=== PATIENT | male | born 1955 | race Caucasian/White ===

== ENCOUNTER 2019-04-15 13:36 | Inpatient (IN) | payer MEDICAID ==
[2019-04-15] MEDS ORDERED: ACETAMINOPHEN 325 MG TABLET PO ONE (14:36)
[2019-04-15 14:43] LABS: VENOUS BLOOD BASE EXCESS 3.8 mmol/L; VENOUS BLOOD HCO3 30.5 mmol/L (20-32); VENOUS BLOOD PCO2 53.4 mmHg (35-63); VENOUS BLOOD PH 7.38 (7.30-7.42)
[2019-04-15 14:46] LABS: ABSOLUTE LYMPHOCYTES (AUTO) 0.7 10^3/uL (0.5-4.7); ABSOLUTE MONOCYTES (AUTO) 1.3 10^3/uL (0.1-1.4); ABSOLUTE NEUT (AUTO) 7.6 10^3/uL (1.7-8.2); BASOPHILS % (AUTO) 0.5 % (0-2); HEMATOCRIT 47.1 % (37.9-51.0); HEMOGLOBIN 16.3 g/dL (13.5-17.0); MEAN CORPUSCULAR HEMOGLOBIN 33.2 pg (27.0-33.4); MEAN CORPUSCULAR HGB CONC 34.6 g/dL (32.0-36.0); MEAN CORPUSCULAR VOLUME 96 fl (80-97); PLATELET COUNT 152 10^3/uL (150-450); RED BLOOD COUNT 4.91 10^6/uL (4.35-5.55); RED CELL DISTRIBUTION WIDTH 13.6 % (11.5-14.0); SEGMENTED NEUTROPHILS % (AUTO) 78.5 % (42-78); TOTAL CELLS COUNTED % (AUTO) 100 %; WHITE BLOOD COUNT 9.6 10^3/uL (4.0-10.5)
[2019-04-15 14:49] LABS: PROTHROMBIN TIME 13.2 SEC (11.4-15.4)
[2019-04-15 15:02] LABS: ALBUMIN 3.8 g/dL (3.5-5.0); ALKALINE PHOSPHATASE 83 U/L (38-126); ANION GAP 9 (5-19); ASPARTATE AMINO TRANSFERASE 21 U/L (17-59); BILIRUBIN,DIRECT 0.3 mg/dL (0.0-0.4); BILIRUBIN,TOTAL 0.4 mg/dL (0.2-1.3); BLOOD UREA NITROGEN 11 mg/dL (7-20); CALCIUM 8.5 mg/dL (8.4-10.2); CARBON DIOXIDE 31 mmol/L (22-30); CHLORIDE 92 mmol/L (98-107); GLUCOSE 103 mg/dL (75-110); POTASSIUM 4.2 mmol/L (3.6-5.0); TOTAL PROTEIN 6.9 g/dL (6.3-8.2)
--- NOTE | 2019-04-15 15:04 | RADIOLOGY REPORT (SQ) ---
EXAM DESCRIPTION: CHEST SINGLE VIEW COMPLETED DATE/TIME: 04/15/2019 2:49 pm REASON FOR STUDY: sob, sepsis alert COMPARISON: None. EXAM PARAMETERS: NUMBER OF VIEWS: One view. TECHNIQUE: Single frontal radiographic view of the chest acquired. RADIATION DOSE: NA LIMITATIONS: None. FINDINGS: LUNGS AND PLEURA: No opacities, masses or pneumothorax. No pleural effusion. MEDIASTINUM AND HILAR STRUCTURES: No masses. Contour normal. HEART AND VASCULAR STRUCTURES: Heart normal in size. Normal vasculature. BONES: No acute findings. HARDWARE: None in the chest. OTHER: No other significant finding. IMPRESSION: NO ACUTE RADIOGRAPHIC FINDING IN THE CHEST. TECHNICAL DOCUMENTATION: JOB ID: [id number] 2010 [employer]- All Rights Reserved Reading location - IP/workstation name: [email or web address]
[2019-04-15] MEDS ORDERED: METHYLPREDNISOLONE INJ 125 MG/2 ML SDV IV ONE (17:04)
[2019-04-15] MEDS ORDERED: IPRATROPIUM/ALBUTEROL 0.5-2.5 MG/3 ML AMPUL NEB ONE (17:04)
--- NOTE | 2019-04-15 17:08 | ER Document Report ---
ED Respiratory Problem - General Chief Complaint: Breathing Difficulty Stated Complaint: COUGH,CONGESTION Time Seen by Provider: 04/15/19 16:56 Notes: Patient is a 63-year-old male who presents to the emergency department with a chief complaint of shortness of breath. Patient was brought in by EMS. Patient states that he has had a cough for quite a while and thought that he could possibly have pneumonia. He admits to having on and off chills. Patient is an everyday smoker. Patient smokes a pack of cigarettes a day. TRAVEL OUTSIDE OF THE [place] IN LAST 30 DAYS: No - Related Data Allergies/Adverse Reactions: No Known Allergies Allergy (Unverified 11/14/14 14:47) Past Medical History - General Information source: Patient - Social History Smoking Status: Current Every Day Smoker Family History: Reviewed & Not Pertinent Patient has suicidal ideation: No Patient has homicidal ideation: No Review of Systems - Review of Systems Notes: REVIEW OF SYSTEMS: CONSTITUTIONAL : Denies recent illness. Denies recent unintentional weight loss. Denies fever, chills, or sweats. EENT: Denies eye, ear, throat, or mouth pain, discharge, or symptoms. Denies nasal or sinus congestion. CARDIOVASCULAR: Denies chest pain. RESPIRATORY: See HPI. GASTROINTESTINAL: Denies nausea, vomiting, and diarrhea. Denies abdominal pain. Denies constipation. GENITOURINARY: Denies difficulty urinating, burning, blood in urine, urgency or frequency. MUSCULOSKELETAL: Denies neck and back pain. Denies joint pain or swelling. SKIN: Denies rash, itchiness, or lesions HEMATOLOGIC : Denies easy bruising or bleeding. LYMPHATIC: Denies swollen, painful, enlarged glands. NEUROLOGICAL: Denies no numbness or tingling denies weakness. Denies headache. Denies altered mental status. Denies alteration in speech. PSYCHIATRIC: Denies stress, anxiety, alteration in sleep patterns, or depression. All other systems reviewed and negative. Physical Exam - Vital signs Vitals: Resp Pulse Ox 24 H 97 04/15/19 14:28 04/15/19 14:28 - Notes Notes: PHYSICAL EXAMINATION: GENERAL: Appears well, healthy, well-nourished, no acute distress. HEAD: Normocephalic, atraumatic. EYES: PERRL, conjunctiva normal, all extraocular movements intact, sclera nonicteric ENT: Dry mucous membranes. NECK: Supple, no noticeable swelling, redness, rash. Normal range of motion. LUNGS: Equal breath sounds bilaterally and clear to auscultation. No wheezes rales or rhonchi. CARDIOVASCULAR: S1-S2, regular rate, regular rhythm. Radial pulses 2+, normal. ABDOMEN: Normoactive bowel sounds. Soft, nontender, no guarding, no rebound tenderness, and no masses palpated. EXTREMITIES: Normal strength and range of motion, no pitting or edema. No cyanosis. NEUROLOGICAL: Moves all extremities upon command. Strength 5/5 in all extremities. PSYCH: Normal mood, normal affect. SKIN: Warm, dry. No rash, lesions, ulcerations noted. Normal skin turgor. Course - Re-evaluation Re-evalutation: 04/15/19 18:45 After receiving 3 duo nebs, 2 g of magnesium and 125 g of Solu-Medrol, the patient still is wheezing. We will give him continuous albuterol nebulizer treatments for the next hour. Will reassess the patient. 04/15/19 20:00 Chest x-ray is normal. Labs are unremarkable. Patient is still wheezing throughout all lung barrett. I attempted to stand the patient up and he ended up deciding to 88-89% on room air. I then subsequently called Dr. Jeff. Patient will be admitted to the medical floor. - Vital Signs Vital signs: Temp Pulse Resp BP Pulse Ox 99.8 F 23 H 107/70 94 04/15/19 17:32 04/15/19 19:01 04/15/19 19:01 04/15/19 19:01 - Laboratory Result Diagrams: 04/15/19 14:30 04/15/19 14:30 Laboratory results interpreted by me: 04/15/19 04/15/19 04/15/19 14:30 14:30 14:30 Lymph % (Auto) 7.[address] [place] % (Auto) 14.0 H Seg Neutrophils % 78.5 H Sodium 132.4 L Chloride 92 L Carbon Dioxide 31 H NT-Pro-B Natriuret Pep 142 H Urine Protein Urine Ketones Urine Urobilinogen 04/15/19 18:50 Lymph % (Auto) [place] % (Auto) Seg Neutrophils % Sodium Chloride Carbon Dioxide NT-Pro-B Natriuret Pep Urine Protein 30 H Urine Ketones TRACE H Urine Urobilinogen 4.0 H Discharge - Discharge Clinical Impression: Shortness of breath, COPD exacerbation Condition: Stable Disposition: ADMITTED INPATIENT Admitting Provider: Tomer (Hospitalist) Unit Admitted: Medical Floor
[2019-04-15] MEDS: MAGNESIUM SULFATE/D5W 1 GM/100 ML RTUPB IV SCH ×2 (17:37→17:53)
[2019-04-15 18:15] LABS: A TYPE INFLUENZA AG NEGATIVE (NEGATIVE); B INFLUENZA AG NEGATIVE (NEGATIVE)
[2019-04-15] MEDS ORDERED: ALBUTEROL SULFATE 0.083% NEB 2.5 MG/3 ML AMPUL NEB ONE (18:43)
[2019-04-15 19:21] LABS: APPEARANCE,URINE CLEAR; BILIRUBIN,URINE NEGATIVE (NEGATIVE); COLOR,URINE YELLOW; GLUCOSE, URINE NEGATIVE (NEGATIVE); KETONES,URINE TRACE mg/dL (NEGATIVE); PROTEIN,URINE 30 mg/dL (NEGATIVE); URINE SPECIFIC GRAVITY 1.011
[2019-04-15] MEDS ORDERED: MAG HYDROX/AL HYDROX/SIMETH SUSP 30 ML UDCUP PO PRN (20:11)
[2019-04-15] MEDS ORDERED: LEVALBUTEROL HCL NEB 0.63 MG/3 ML AMPUL NEB PRN (20:11)
[2019-04-15] MEDS ORDERED: GUAIFENESIN SYRP 200 MG/10 ML UDC PO PRN (20:11)
[2019-04-15] MEDS ORDERED: ACETAMINOPHEN 325 MG TABLET PO PRN (20:11)
[2019-04-15] MEDS ORDERED: NICOTINE 21 MG/24 HR PATCH.TD24 TD PRN (20:11)
[2019-04-15] MEDS ORDERED: PROMETHAZINE HCL INJ 25 MG/1 ML VIAL IV PRN (20:11)
[2019-04-15] MEDS ORDERED: MAGNESIUM HYDROXIDE SUSP 30 ML UDCUP PO PRN (20:11)
[2019-04-15] MEDS: FAMOTIDINE 20 MG TABLET PO SCH (22:38)
[2019-04-15] MEDS: HEPARIN SOD (PORCINE) 5,000 UNIT/ML 1 ML VIAL SUBCUT SCH (22:39)
[2019-04-15] MEDS: MELATONIN 5 MG TABLET PO PRN (22:39)
--- NOTE | 2019-04-15 23:13 | EKG REPORT ---
SEVERITY:- ABNORMAL ECG - SINUS TACHYCARDIA MULTIPLE ATRIAL PREMATURE COMPLEXES DION, CONSIDER BIATRIAL ABNORMALITIES : Confirmed by: Ryan Grijalva 15-Apr-2019 23:13:11
[2019-04-16] MEDS: METHYLPREDNISOLONE INJ 40 MG/1 ML SDV IV SCH ×3 (00:10→11:25)
--- NOTE | 2019-04-16 00:10 | PDOC H&P ---
History of Present Illness Admission Date/PCP: 04/15/2019 20:02 No local PCP Patient complains of: Dyspnea History of Present Illness: MAUDE FIGUEROA is a 63 year old male who presented to the emergency room with acute dyspnea. He admits that he developed dyspnea this morning which he has worsened throughout the day, eventually becoming severe, causing him to call EMS to bring him to the hospital. His dyspnea is worsened by exertion and is accompanied by an increased chronic nonproductive cough. His dyspnea has been associated with intermittent episodes of subjective fever and chills with diaphoresis. He denies other associated or accompanying signs and symptoms. He admits prior similar episodes with respiratory infections in the past. He denies identification of any additional aggravating or ameliorating factors for his dyspnea. In the emergency room he was found to have an unremarkable evaluation with the exception of an initial elevated lactic acid which resolved with IV fluids and wheezing with acute hypoxic respiratory failure requiring supplemental oxygen. Patient was subsequently admitted to the hospital for further evaluation and treatment. Past Medical History Cardiac Medical History: Denies: Atrial Fibrillation, Congestive Heart Failure, Coronary Artery Disease, DVT, Myocardial Infarction, Hyperlipidema, Hypertension, Pulmonary Embolism Pulmonary Medical History: Reports: Bronchitis, Pneumonia Denies: Asthma, Chronic Obstructive Pulmonary Disease (COPD), Respiratory Failure EENT Medical History: Denies: Cataracts, Ears - Hearing aids Neurological Medical History: Denies: Hemorrhagic CVA, Ischemic CVA, Seizures Endocrine Medical History: Denies: Diabetes Mellitus Type 1, Diabetes Mellitus Type 2, Hyperthyroidism, Hypothyroidism Renal/ Medical History: Denies: Chronic Kidney Disease, Nephrolithiasis Malignancy Medical History: Reports: None GI Medical History: Denies: Cirrhosis, Crohn's Disease, Gastroesophageal Reflux Disease, Hepatitis, Peptic Ulcer Disease, Ulcerative Colitis Musculoskeltal Medical History: Denies: Arthritis, Gout Skin Medical History: Denies: Eczema, Psoriasis Psychiatric Medical History: Reports: Tobacco Dependency Denies: Alcohol Dependency, Substance Abuse Traumatic Medical History: Reports: None Hematology: Denies: Anemia, Bleeding Tendencies Infectious Medical History: Reports: None Past Surgical History Past Surgical History: Reports: Other - Incision and drainage of abscess Social History Information Source: Patient Lives with: Alone Smoking Status: Current Every Day Smoker Electronic Cigarette use?: No Frequency of Alcohol Use: Occasional Hx Recreational Drug Use: Yes - Occasional Drugs: Marijuana Hx Prescription Drug Abuse: No - Advance Directive Resuscitation Status: Full Code Surrogate healthcare decision maker:: Navneet Parekh Family History Family History: Malignancy. denies: CAD, DM, Hypertension Parental Family History Reviewed: Yes Children Family History Reviewed: No Sibling(s) Family History Reviewed.: Yes Medication/Allergy Home Medications: Hydrocodone/Acetaminophen [[place] 5-325 mg Tablet] 1 tab PO Q4HP PRN #14 tablet 11/14/14 Sulfamethoxazole/Trimethoprim [Sulfamethoxazole-Tmp Ds Tablet] 2 each PO BID #30 tablet 11/14/14 Allergies/Adverse Reactions: No Known Allergies Allergy (Unverified 11/14/14 14:47) Review of Systems Constitutional: PRESENT: as per HPI, chills, fever(s) Eyes: ABSENT: visual disturbances, other - Eye pain Ears: ABSENT: hearing changes, other - Ear pain Nose, Mouth, and Throat: ABSENT: headache(s), mouth pain, sore throat Cardiovascular: PRESENT: as per HPI, dyspnea on exertion. ABSENT: chest pain, edema, orthropnea, palpitations Respiratory: PRESENT: as per HPI, cough, dyspnea. ABSENT: hemoptysis, sputum Gastrointestinal: ABSENT: abdominal pain, constipation, diarrhea, nausea, vomiting Genitourinary: ABSENT: dysuria, hematuria Musculoskeletal: ABSENT: back pain, joint swelling, muscle weakness Integumentary: PRESENT: as per HPI, diaphoresis. ABSENT: pruritus, rash Neurological: ABSENT: confusion, convulsions, focal weakness, memory loss, syn cope Psychiatric: ABSENT: anxiety, depression Endocrine: ABSENT: cold intolerance, heat intolerance, polydipsia, polyphagia, polyuria Hematologic/Lymphatic: ABSENT: easy bleeding, easy bruising Allergic/Immunologic: ABSENT: seasonal rhinorrhea Physical Exam Vital Signs: Temp Pulse Resp BP Pulse Ox 99.8 F 23 H 107/70 94 04/15/19 17:32 04/15/19 19:01 04/15/19 19:01 04/15/19 19:01 Intake & Output 04/13/19 04/14/19 04/15/19 23:59 23:59 23:59 Intake Total 200 Balance 200 General appearance: PRESENT: no acute distress, cooperative, other - On supplemental oxygen via nasal cannula at the time of my exam Head exam: PRESENT: atraumatic, normocephalic Eye exam: PRESENT: conjunctiva pink. ABSENT: conjunctival injection, scleral icterus Ear exam: PRESENT: normal external ear exam. ABSENT: bleeding, drainage Mouth exam: PRESENT: dry mucosa, neck supple Neck exam: ABSENT: thyromegaly, tracheal deviation Respiratory exam: PRESENT: decreased breath sounds - Mildly decreased breath sounds throughout all lung barrett, prolonged expiratory phas - Moderately prolonged expiratory phase present throughout all lung barrett, symmetrical, wheezes - Expiratory wheezes present throughout all lung barrett. ABSENT: rales, rhonchi Cardiovascular exam: PRESENT: RRR. ABSENT: clicks, gallop, rubs Pulses: PRESENT: normal radial pulses, normal dorsalis pedis pul Vascular exam: PRESENT: normal capillary refill. ABSENT: pallor GI/Abdominal exam: PRESENT: normal bowel sounds, soft. ABSENT: tenderness Rectal exam: PRESENT: deferred Extremities exam: ABSENT: joint swelling, pedal edema Musculoskeletal exam: ABSENT: deformity, dislocation Neurological exam: PRESENT: alert, oriented to person, oriented to place, oriented to time, oriented to situation, CN II-XII grossly intact. ABSENT: motor sensory deficit Psychiatric exam: PRESENT: appropriate affect, normal mood Skin exam: PRESENT: dry, intact, warm. ABSENT: jaundice, rash, urticaria Results Laboratory Results: 04/15/19 14:30 04/15/19 14:30 04/15/19 04/15/19 04/15/19 14:15 14:30 14:30 WBC 9.6 RBC 4.91 Hgb 16.3 Hct 47.1 MCV 96 MCH 33.2 MCHC 34.6 RDW 13.6 Plt Count 152 Seg Neutrophils % 78.5 H VBG pH VBG pCO2 VBG HCO3 VBG Base Excess Sodium 132.4 L Potassium 4.2 Chloride 92 L Carbon Dioxide 31 H Anion Gap 9 BUN 11 Creatinine 0.75 Est GFR ( Amer) > 60 Glucose 103 Lactic Acid 1.1 Calcium 8.5 Total Bilirubin 0.4 AST 21 Alkaline Phosphatase 83 Total Protein 6.9 Albumin 3.8 Urine Color Urine Appearance Urine pH Ur Specific [place] Urine Protein Urine Glucose (UA) Urine Ketones Urine Blood Urine RBC (Auto) 04/15/19 04/15/19 04/15/19 14:30 18:50 18:57 WBC RBC Hgb Hct MCV MCH MCHC RDW Plt Count Seg Neutrophils % VBG pH 7.38 VBG pCO2 53.4 VBG HCO3 30.5 VBG Base Excess 3.8 Sodium Potassium Chloride Carbon Dioxide Anion Gap BUN Creatinine Est GFR ( Amer) Glucose Lactic Acid 1.2 Calcium Total Bilirubin AST Alkaline Phosphatase Total Protein Albumin Urine Color YELLOW Urine Appearance CLEAR Urine pH 6.0 Ur Specific [place] 1.011 Urine Protein 30 H Urine Glucose (UA) NEGATIVE Urine Ketones TRACE H Urine Blood NEGATIVE Urine RBC (Auto) 4 04/15/19 04/15/19 14:30 14:30 Troponin I < 0.012 NT-Pro-B Natriuret Pep 142 H Impressions: Chest X-Ray 04/15/19 14:29 IMPRESSION: NO ACUTE RADIOGRAPHIC FINDING IN THE CHEST. Assessment and Plan - Diagnosis (1) COPD exacerbation Is this a current diagnosis for this admission?: Yes (2) Acute respiratory failure with hypoxia Is this a current diagnosis for this admission?: Yes (3) Tobacco use disorder, severe, dependence Is this a current diagnosis for this admission?: Yes (4) Hyponatremia Is this a current diagnosis for this admission?: Yes - Plan Summary Summary: Patient will be admitted to medical floor where he will receive routine supportive and symptomatic cares. He will be treated with an aggressive pulmonary toilet utilizing nebulized Xopenex, Atrovent and Pulmicort. He will receive supplemental oxygen as required to maintain an adequate O2 saturation per the O2 protocol. He will receive IV Solu-Medrol 40 mg every 6 hours x3 doses. Smoking cessation is advised and counseled briefly at the bedside. A nicotine replacement patch is available for the patient's use if desired. He may use Ativan 1 mg IV every 4 hours as needed for anxiety. CBCs, metabolic pro files and magnesium levels will be obtained as appropriate. - Time Time Spent with patient: 15-24 minutes Smoking Cessation Education: 3 to 10 minutes Medications reviewed and adjusted accordingly: Yes Anticipated discharge: Home - Inpatient Certification Based on my medical assessment, after consideration of the patient's comorbidities, presenting symptoms, or acuity I expect that the services needed warrant INPATIENT care.: Yes I certify that my determination is in accordance with my understanding of Medicare's requirements for reasonable and necessary INPATIENT services [42 CFR 412.3e].: Yes Medical Necessity: Need Close Monitoring Due to Risk of Patient Decompensation, Need for Nebulizer Therapy and Monitoring of Response, Risk of Complication if Not Cared For in Hospital
[2019-04-16] MEDS: LEVALBUTEROL HCL NEB 1.25 MG/3 ML AMPUL NEB SCH ×4 (00:23→23:44)
[2019-04-16] MEDS: IPRATROPIUM BROMIDE 0.02% NEB 0.5 MG/2.5 ML AMPUL NEB SCH ×4 (00:23→23:44)
[2019-04-16] MEDS: HEPARIN SOD (PORCINE) 5,000 UNIT/ML 1 ML VIAL SUBCUT SCH ×3 (05:22→21:29)
[2019-04-16 07:20] LABS: HEMATOCRIT 47.2 % (37.9-51.0); HEMOGLOBIN 16.1 g/dL (13.5-17.0); MEAN CORPUSCULAR HEMOGLOBIN 32.7 pg (27.0-33.4); MEAN CORPUSCULAR HGB CONC 34.2 g/dL (32.0-36.0); MEAN CORPUSCULAR VOLUME 96 fl (80-97); PLATELET COUNT 137 10^3/uL (150-450); RED BLOOD COUNT 4.92 10^6/uL (4.35-5.55); RED CELL DISTRIBUTION WIDTH 13.4 % (11.5-14.0); WHITE BLOOD COUNT 5.8 10^3/uL (4.0-10.5)
[2019-04-16 07:40] LABS: BLOOD UREA NITROGEN 15 mg/dL (7-20); CALCIUM 8.7 mg/dL (8.4-10.2); CARBON DIOXIDE 29 mmol/L (22-30); GLUCOSE 209 mg/dL (75-110); POTASSIUM 4.4 mmol/L (3.6-5.0)
[2019-04-16] MEDS ORDERED: BUDESONIDE NEB 0.5 MG/2 ML AMPUL NEB SCH ×2 (08:00→14:00)
[2019-04-16 08:28] LABS: ANION GAP 8 (5-19); CHLORIDE 99 mmol/L (98-107)
[2019-04-16] MEDS: DOCUSATE SODIUM 100 MG CAPSULE PO SCH ×2 (09:13→17:22)
[2019-04-16] MEDS: FAMOTIDINE 20 MG TABLET PO SCH ×2 (09:13→21:32)
--- NOTE | 2019-04-16 12:05 | PDOC PROGRESS REPORT ---
Subjective Progress Note for:: 04/16/19 Subjective:: The patient is currently eating lunch. He feels that his breathing is slightly better. He still has oxygen in place. He was able to collect a sputum culture that will be sent to the microbiology lab. Reason For Visit: ACUTE EXACERBATION OF COPD,ACUTE RESPIRATORY Physical Exam Vital Signs: Temp Pulse Resp BP Pulse Ox 97.6 F 88 18 123/71 96 04/16/19 07:41 04/16/19 09:07 04/16/19 09:07 04/16/19 07:41 04/16/19 09:07 Intake & Output 04/15/19 04/16/19 04/17/19 06:59 06:59 06:59 Intake Total 1050 Output Total 900 Balance 150 Weight 78.6 kg General appearance: PRESENT: no acute distress, cooperative, well-developed Head exam: PRESENT: atraumatic, normocephalic Respiratory exam: PRESENT: prolonged expiratory phas, rhonchi, symmetrical, unlabored. ABSENT: tachypnea, wheezes Cardiovascular exam: PRESENT: RRR, +S1, +S2 GI/Abdominal exam: PRESENT: normal bowel sounds, soft. ABSENT: distended, guarding, mass, tenderness Rectal exam: PRESENT: deferred Gentrourinary exam: ABSENT: indwelling catheter Extremities exam: ABSENT: pedal edema Musculoskeletal exam: PRESENT: ambulatory, normal inspection. ABSENT: deformity Neurological exam: PRESENT: alert, awake, oriented to person, oriented to place, oriented to time, oriented to situation, CN II-XII grossly intact. ABSENT: motor sensory deficit Psychiatric exam: PRESENT: flat affect. ABSENT: agitated, anxious Focused psych exam: ABSENT: delusional, restlessness Skin exam: PRESENT: dry, normal color, warm, other - Multiple tattoos. ABSENT: rash Results Laboratory Results: 04/16/19 06:39 04/16/19 06:39 04/15/19 04/15/19 04/15/19 14:15 14:30 14:30 WBC 9.6 RBC 4.91 Hgb 16.3 Hct 47.1 MCV 96 MCH 33.2 MCHC 34.6 RDW 13.6 Plt Count 152 Seg Neutrophils % 78.5 H VBG pH VBG pCO2 VBG HCO3 VBG Base Excess Sodium 132.4 L Potassium 4.2 Chloride 92 L Carbon Dioxide 31 H Anion Gap 9 BUN 11 Creatinine 0.75 Est GFR ( Amer) > 60 Glucose 103 Lactic Acid 1.1 Calcium 8.5 Total Bilirubin 0.4 AST 21 Alkaline Phosphatase 83 Total Protein 6.9 Albumin 3.8 Urine Color Urine Appearance Urine pH Ur Specific [place] Urine Protein Urine Glucose (UA) Urine Ketones Urine Blood Urine RBC (Auto) 04/15/19 04/15/19 04/15/19 14:30 18:50 18:57 WBC RBC Hgb Hct MCV MCH MCHC RDW Plt Count Seg Neutrophils % VBG pH 7.38 VBG pCO2 53.4 VBG HCO3 30.5 VBG Base Excess 3.8 Sodium Potassium Chloride Carbon Dioxide Anion Gap BUN Creatinine Est GFR ( Amer) Glucose Lactic Acid 1.2 Calcium Total Bilirubin AST Alkaline Phosphatase Total Protein Albumin Urine Color YELLOW Urine Appearance CLEAR Urine pH 6.0 Ur Specific [place] 1.011 Urine Protein 30 H Urine Glucose (UA) NEGATIVE Urine Ketones TRACE H Urine Blood NEGATIVE Urine RBC (Auto) 4 04/15/19 04/16/19 04/16/19 22:27 06:39 06:39 WBC 5.8 RBC 4.92 Hgb 16.1 Hct 47.2 MCV 96 MCH 32.7 MCHC 34.2 RDW 13.4 Plt Count 137 L Seg Neutrophils % VBG pH VBG pCO2 VBG HCO3 VBG Base Excess Sodium 135.5 L Potassium 4.4 Chloride 99 Carbon Dioxide 29 Anion Gap 8 BUN 15 Creatinine 0.48 L Est GFR ( Amer) > 60 Glucose 209 H Lactic Acid 2.9 H Calcium 8.7 Total Bilirubin AST Alkaline Phosphatase Total Protein Albumin Urine Color Urine Appearance Urine pH Ur Specific [place] Urine Protein Urine Glucose (UA) Urine Ketones Urine Blood Urine RBC (Auto) 04/15/19 04/15/19 14:30 14:30 Troponin I < 0.012 NT-Pro-B Natriuret Pep 142 H Impressions: Chest X-Ray 04/15/19 14:29 IMPRESSION: NO ACUTE RADIOGRAPHIC FINDING IN THE CHEST. Assessment and Plan - Diagnosis (1) Acute respiratory failure with hypoxia Is this a current diagnosis for this admission?: Yes (2) COPD exacerbation Is this a current diagnosis for this admission?: Yes (3) Hyponatremia Is this a current diagnosis for this admission?: Yes (4) Tobacco use disorder, severe, dependence Is this a current diagnosis for this admission?: Yes - Plan Summary Summary: Patient will be admitted to medical floor where he will receive routine supportive and symptomatic cares. He will be treated with an aggressive pulmonary toilet utilizing nebulized Xopenex, Atrovent and Pulmicort. He will receive supplemental oxygen as required to maintain an adequate O2 saturation per the O2 protocol. He will receive IV Solu-Medrol 40 mg every 6 hours x3 doses. Smoking cessation is advised and counseled briefly at the bedside. A nicotine replacement patch is available for the patient's use if desired. He may use Ativan 1 mg IV every 4 hours as needed for anxiety. CBCs, metabolic profiles and magnesium levels will be obtained as appropriate. 04/16/2019 The patient will receive oxygen supplementation as well as aggressive nebulizer treatments and mucolytic's for the acute respiratory failure secondary to COPD exacerbation. He did not have an elevated white blood cell count. He did have a low-grade temperature on admission. He is not receiving antibiotic therapy at this time but if his clinical state changes then consider antibiotic therapy. He does have hyponatremia. We will recheck his sodium. This may very well be transient and not clinically significant. They nicotine patches available for his tobacco dependence. - Time Time Spent with patient: Less than 15 minutes Medications reviewed and adjusted accordingly: Yes Anticipated discharge: Home
[2019-04-16] MEDS: NORMAL SALINE 1000 ML 1,000 ML IV PRN ×2 (12:10→21:44)
[2019-04-16] MEDS: BUDESONIDE NEB 0.5 MG/2 ML AMPUL NEB SCH ×2 (15:46→23:44)
[2019-04-16] MEDS: MELATONIN 5 MG TABLET PO PRN (21:32)
[2019-04-16] MEDS: GUAIFENESIN 600 MG TABLET.SA PO SCH (21:32)
[2019-04-17] MEDS: HEPARIN SOD (PORCINE) 5,000 UNIT/ML 1 ML VIAL SUBCUT SCH ×3 (05:10→21:30)
[2019-04-17 06:53] LABS: ABSOLUTE LYMPHOCYTES (AUTO) 1.3 10^3/uL (0.5-4.7); ABSOLUTE MONOCYTES (AUTO) 1.2 10^3/uL (0.1-1.4); ABSOLUTE NEUT (AUTO) 9.8 10^3/uL (1.7-8.2); BASOPHILS % (AUTO) 0.1 % (0-2); EOSINOPHILS % (AUTO) 0.1 % (0-6); HEMATOCRIT 43.3 % (37.9-51.0); HEMOGLOBIN 14.7 g/dL (13.5-17.0); LYMPHOCYTES % (AUTO) 10.2 % (13-45); MEAN CORPUSCULAR HEMOGLOBIN 32.8 pg (27.0-33.4); MEAN CORPUSCULAR HGB CONC 33.9 g/dL (32.0-36.0); MEAN CORPUSCULAR VOLUME 97 fl (80-97); MONOCYTES % (AUTO) 9.7 % (3-13); PLATELET COUNT 156 10^3/uL (150-450); RED BLOOD COUNT 4.47 10^6/uL (4.35-5.55); RED CELL DISTRIBUTION WIDTH 13.2 % (11.5-14.0); SEGMENTED NEUTROPHILS % (AUTO) 79.9 % (42-78); TOTAL CELLS COUNTED % (AUTO) 100 %
[2019-04-17 06:54] LABS: WHITE BLOOD COUNT 12.2 10^3/uL (4.0-10.5)
[2019-04-17 07:16] LABS: ANION GAP 5 (5-19); BLOOD UREA NITROGEN 13 mg/dL (7-20); CALCIUM 8.5 mg/dL (8.4-10.2); CARBON DIOXIDE 31 mmol/L (22-30); CHLORIDE 102 mmol/L (98-107); GLUCOSE 90 mg/dL (75-110); POTASSIUM 4.7 mmol/L (3.6-5.0)
[2019-04-17] MEDS: LEVALBUTEROL HCL NEB 1.25 MG/3 ML AMPUL NEB SCH ×2 (08:52→15:55)
[2019-04-17] MEDS: BUDESONIDE NEB 0.5 MG/2 ML AMPUL NEB SCH ×2 (08:52→15:55)
[2019-04-17] MEDS: IPRATROPIUM BROMIDE 0.02% NEB 0.5 MG/2.5 ML AMPUL NEB SCH ×2 (08:52→15:55)
[2019-04-17] MEDS: NORMAL SALINE 1000 ML 1,000 ML IV PRN (08:53)
[2019-04-17] MEDS: NICOTINE 21 MG/24 HR PATCH.TD24 TD SCH (09:16)
[2019-04-17] MEDS: DOCUSATE SODIUM 100 MG CAPSULE PO SCH ×2 (09:17→17:35)
[2019-04-17] MEDS: GUAIFENESIN 600 MG TABLET.SA PO SCH ×2 (09:17→21:30)
[2019-04-17] MEDS: PREDNISONE 20 MG TABLET PO SCH (09:17)
[2019-04-17] MEDS: FAMOTIDINE 20 MG TABLET PO SCH ×2 (09:18→21:30)
[2019-04-17] MEDS: PHENOL/SODIUM PHENOLATE 100 SPRAY/177 ML BOTTLE PO PRN (09:21)
--- NOTE | 2019-04-17 16:52 | PDOC PROGRESS REPORT ---
Subjective Progress Note for:: 04/17/19 Subjective:: MAUDE FIGUEROA is a 63 year old male who presented to the emergency room with acute dyspnea. He admits that he developed dyspnea this morning which he has worsened throughout the day, eventually becoming severe, causing him to call EMS to bring him to the hospital. His dyspnea is worsened by exertion and is accompanied by an increased chronic nonproductive cough. His dyspnea has been associated with intermittent episodes of subjective fever and chills with diaphoresis. He denies other associated or accompanying signs and symptoms. He admits prior similar episodes with respiratory infections in the past. He denies identification of any additional aggravating or ameliorating factors for his dyspnea. In the emergency room he was found to have an unremarkable evaluation with the exception of an initial elevated lactic acid which resolved with IV fluids and wheezing with acute hypoxic respiratory failure requiring supplemental oxygen. Patient was subsequently admitted to the hospital for further evaluation and treatment. 04/17/2019. No acute events overnight. Patient still has significant pulmonary wheezing bilaterally and on supplemental oxygen. Denies any chest pain. Fever, chills, nausea, vomiting, diarrhea, constipation or any urinary symptoms. Reason For Visit: ACUTE EXACERBATION OF COPD,ACUTE RESPIRATORY Physical Exam Vital Signs: Temp Pulse Resp BP Pulse Ox 97.9 F 98 18 142/67 H 100 04/17/19 15:14 04/17/19 15:55 04/17/19 15:55 04/17/19 15:14 04/17/19 15:55 Intake & Output 04/16/19 04/17/19 04/18/19 06:59 06:59 06:59 Intake Total 1050 3426 1302 Output Total 900 300 200 Balance 150 3126 1102 Weight 78.6 kg 78.6 kg General appearance: PRESENT: mild distress Head exam: PRESENT: atraumatic, normocephalic Respiratory exam: PRESENT: decreased breath sounds, prolonged expiratory phas, wheezes. ABSENT: rales, rhonchi Cardiovascular exam: PRESENT: RRR. ABSENT: diastolic murmur, rubs, systolic murmur Pulses: PRESENT: normal dorsalis pedis pul GI/Abdominal exam: PRESENT: normal bowel sounds, soft. ABSENT: distended, guarding, mass, organolmegaly, rebound, tenderness Neurological exam: PRESENT: alert, awake, oriented to person, oriented to place, oriented to time, oriented to situation, CN II-XII grossly intact. ABSENT: motor sensory deficit Results Laboratory Results: 04/17/19 06:18 04/17/19 06:18 04/16/19 04/16/19 04/17/19 19:07 21:50 06:18 WBC 12.2 H D RBC 4.47 Hgb 14.7 Hct 43.3 MCV 97 MCH 32.8 MCHC 33.9 RDW 13.2 Plt Count 156 Seg Neutrophils % 79.9 H Sodium Potassium Chloride Carbon Dioxide Anion Gap BUN Creatinine Est GFR ( Amer) Glucose Lactic Acid 2.5 H 1.6 Calcium Magnesium 04/17/19 04/17/19 06:18 06:18 WBC RBC Hgb Hct MCV MCH MCHC RDW Plt Count Seg Neutrophils % Sodium 138.1 Potassium 4.7 Chloride 102 Carbon Dioxide 31 H Anion Gap 5 BUN 13 Creatinine 0.59 Est GFR ( Amer) > 60 Glucose 90 Lactic Acid 1.3 Calcium 8.5 Magnesium 2.1 04/15/19 04/15/19 14:30 14:30 Troponin I < 0.012 NT-Pro-B Natriuret Pep 142 H Impressions: Chest X-Ray 04/15/19 14:29 IMPRESSION: NO ACUTE RADIOGRAPHIC FINDING IN THE CHEST. Assessment and Plan - Diagnosis (1) Acute respiratory failure with hypoxia Is this a current diagnosis for this admission?: Yes Plan: Due to COPD exacerbation. CXR no acute findings. Troponins negative. EKG no acute changes. Continue duo nebs, supplemental oxygen, incentive spirometry, IV steroids, empiric IV antibiotics, pulmonary toileting, LABA, LABA, ICS. (2) COPD exacerbation Is this a current diagnosis for this admission?: Yes Plan: Plan as per #1. (3) Tobacco use disorder, severe, dependence Is this a current diagnosis for this admission?: Yes Plan: Extensively counseled on quitting. NicoDerm patch provided.
[2019-04-18] MEDS: IPRATROPIUM BROMIDE 0.02% NEB 0.5 MG/2.5 ML AMPUL NEB SCH ×3 (00:11→16:43)
[2019-04-18] MEDS: BUDESONIDE NEB 0.5 MG/2 ML AMPUL NEB SCH ×3 (00:11→16:43)
[2019-04-18] MEDS: LEVALBUTEROL HCL NEB 1.25 MG/3 ML AMPUL NEB SCH ×3 (00:11→16:43)
[2019-04-18 05:13] LABS: HEMATOCRIT 39.8 % (37.9-51.0); HEMOGLOBIN 13.7 g/dL (13.5-17.0); MEAN CORPUSCULAR HGB CONC 34.4 g/dL (32.0-36.0); MEAN CORPUSCULAR VOLUME 96 fl (80-97); PLATELET COUNT 155 10^3/uL (150-450); RED BLOOD COUNT 4.15 10^6/uL (4.35-5.55); RED CELL DISTRIBUTION WIDTH 13.6 % (11.5-14.0); WHITE BLOOD COUNT 8.5 10^3/uL (4.0-10.5)
[2019-04-18] MEDS: HEPARIN SOD (PORCINE) 5,000 UNIT/ML 1 ML VIAL SUBCUT SCH ×3 (05:14→22:26)
[2019-04-18] MEDS: PHENOL/SODIUM PHENOLATE 100 SPRAY/177 ML BOTTLE PO PRN ×2 (05:15→22:23)
[2019-04-18] MEDS: FAMOTIDINE 20 MG TABLET PO SCH ×2 (09:08→22:27)
[2019-04-18] MEDS: PREDNISONE 20 MG TABLET PO SCH (09:08)
[2019-04-18] MEDS: DOCUSATE SODIUM 100 MG CAPSULE PO SCH ×2 (09:08→17:36)
[2019-04-18] MEDS: NICOTINE 21 MG/24 HR PATCH.TD24 TD SCH (09:08)
[2019-04-18] MEDS: GUAIFENESIN 600 MG TABLET.SA PO SCH ×2 (09:08→22:26)
[2019-04-18] MEDS ORDERED: AZITHROMYCIN 250 MG TABLET PO SCH (11:15)
--- NOTE | 2019-04-18 13:41 | PDOC PROGRESS REPORT ---
Subjective Progress Note for:: 04/18/19 Subjective:: MAUDE FIGUEROA is a 63 year old male who presented to the emergency room with acute dyspnea. He admits that he developed dyspnea this morning which he has worsened throughout the day, eventually becoming severe, causing him to call EMS to bring him to the hospital. His dyspnea is worsened by exertion and is accompanied by an increased chronic nonproductive cough. His dyspnea has been associated with intermittent episodes of subjective fever and chills with diaphoresis. He denies other associated or accompanying signs and symptoms. He admits prior similar episodes with respiratory infections in the past. He denies identification of any additional aggravating or ameliorating factors for his dyspnea. In the emergency room he was found to have an unremarkable evaluation with the exception of an initial elevated lactic acid which resolved with IV fluids and wheezing with acute hypoxic respiratory failure requiring supplemental oxygen. Patient was subsequently admitted to the hospital for further evaluation and treatment. 04/17/2019. No acute events overnight. Patient still has significant pulmonary wheezing bilaterally and on supplemental oxygen. Denies any chest pain. Fever, chills, nausea, vomiting, diarrhea, constipation or any urinary symptoms. 04/18/2019. No acute events overnight. Patient stating that he is feeling better compared to yesterday, still dependent on supplemental oxygen, has any chest pain, cough, nausea, vomiting, diarrhea, constipation or any urinary symptoms. Reason For Visit: ACUTE EXACERBATION OF COPD,ACUTE RESPIRATORY Physical Exam Vital Signs: Temp Pulse Resp BP Pulse Ox 99.0 F 108 H 18 123/73 92 04/18/19 07:46 04/18/19 10:27 04/18/19 10:27 04/18/19 07:46 04/18/19 10:27 Intake & Output 04/17/19 04/18/19 04/19/19 06:59 06:59 06:59 Intake Total 3426 2332 Output Total 300 200 Balance 3126 2132 Weight 78.6 kg 82.1 kg General appearance: PRESENT: no acute distress, well-developed, well-nourished Head exam: PRESENT: atraumatic, normocephalic Respiratory exam: PRESENT: decreased breath sounds, prolonged expiratory phas, wheezes. ABSENT: rales, rhonchi Cardiovascular exam: PRESENT: RRR. ABSENT: diastolic murmur, rubs, systolic murmur Neurological exam: PRESENT: alert, awake, oriented to person, oriented to place, oriented to time, oriented to situation, CN II-XII grossly intact. ABSENT: motor sensory deficit Results Laboratory Results: 04/18/19 04:47 04/17/19 06:18 04/18/19 04:47 WBC 8.5 RBC 4.15 L Hgb 13.7 Hct 39.8 MCV 96 MCH 33.0 MCHC 34.4 RDW 13.6 Plt Count 155 04/16/19 13:34 Sputum Gram Stain - Final 04/16/19 13:34 Sputum Sputum Culture - Final NORMAL IZABEL 04/15/19 04/15/19 14:30 14:30 Troponin I < 0.012 NT-Pro-B Natriuret Pep 142 H Impressions: Chest X-Ray 04/15/19 14:29 IMPRESSION: NO ACUTE RADIOGRAPHIC FINDING IN THE CHEST. Assessment and Plan - Diagnosis (1) Acute respiratory failure with hypoxia Is this a current diagnosis for this admission?: Yes Plan: Due to COPD exacerbation. CXR no acute findings. Troponins negative. EKG no acute changes. Continue duo nebs, supplemental oxygen, incentive spirometry, IV steroids, empiric IV antibiotics, pulmonary toileting, LABA, LABA, ICS. (2) COPD exacerbation Is this a current diagnosis for this admission?: Yes Plan: Plan as per #1. (3) Tobacco use disorder, severe, dependence Is this a current diagnosis for this admission?: Yes Plan: Extensively counseled on quitting. NicoDerm patch provided. (4) Fever Qualifiers: Encounter type: initial encounter Is this a current diagnosis for this admission?: Yes Plan: Patient had reported fever chills on admission. Also noted to have a fever of 102.9 on 04/15/2019. WBC WNL. Influenza A/B negative. CXR WNL. Cultures negative so far. No apparent sign of infection other than fever on admission. Given patient's history of chronic smoking, COPD, age and significant improvement will start on empiric antibiotics.
[2019-04-18] MEDS ORDERED: LEVOFLOXACIN 500 MG TABLET PO SCH (18:00)
[2019-04-19] MEDS: BUDESONIDE NEB 0.5 MG/2 ML AMPUL NEB SCH ×2 (00:15→08:14)
[2019-04-19] MEDS: IPRATROPIUM BROMIDE 0.02% NEB 0.5 MG/2.5 ML AMPUL NEB SCH ×2 (00:15→08:14)
[2019-04-19] MEDS: LEVALBUTEROL HCL NEB 1.25 MG/3 ML AMPUL NEB SCH ×2 (00:15→08:13)
[2019-04-19] MEDS: HEPARIN SOD (PORCINE) 5,000 UNIT/ML 1 ML VIAL SUBCUT SCH (05:59)
[2019-04-19] MEDS: FAMOTIDINE 20 MG TABLET PO SCH (09:19)
[2019-04-19] MEDS: GUAIFENESIN 600 MG TABLET.SA PO SCH (09:19)
[2019-04-19] MEDS: PREDNISONE 20 MG TABLET PO SCH (09:19)
[2019-04-19] MEDS: DOCUSATE SODIUM 100 MG CAPSULE PO SCH (09:19)
[2019-04-19] MEDS: NICOTINE 21 MG/24 HR PATCH.TD24 TD SCH (09:20)
[2019-04-19 10:03] VITALS: BP 135/73
--- NOTE | 2019-05-14 10:45 | PDOC DISCHARGE SUMMARY ---
Impression - Admit/DC Date/PCP Admission Date/Primary Care Provider: 04/15/19 20:40 Discharge Date: 04/19/19 - Discharge Diagnosis (1) Acute respiratory failure with hypoxia Is this a current diagnosis for this admission?: Yes (2) COPD exacerbation Is this a current diagnosis for this admission?: Yes (3) Tobacco use disorder, severe, dependence Is this a current diagnosis for this admission?: Yes (4) Fever Is this a current diagnosis for this admission?: Yes - Additional Information Resuscitation Status: Full Code Discharge Diet: Regular Discharge Activity: Activity As Tolerated, Balance Activity w/Rest Referrals: [facility] [Provider Group] - 04/30/19 10:00 am Prescriptions: Umeclidinium Brm/Vilanterol Tr [Anoro Ellipta 62.5-25 Mcg INH] 1 each IH DAILY 30 Days #1 blst.w.dev Prednisone [Deltasone 20 mg Tablet] 40 mg PO DAILY 4 Days #8 tablet Levofloxacin [Levaquin] 500 mg PO DAILY 3 Days #3 tablet Albuterol Sulfate [Ventolin Hfa 8 gm Mdi] 2 puff IH Q6HP PRN 30 Days #1 inhaler PRN Reason: Home Medications: Albuterol Sulfate [Ventolin Hfa 8 gm Mdi] 2 puff IH Q6HP PRN 30 Days #1 inhaler 04/19/19 Levofloxacin [Levaquin] 500 mg PO DAILY 3 Days #3 tablet 04/19/19 Prednisone [Deltasone 20 mg Tablet] 40 mg PO DAILY 4 Days #8 tablet 04/19/19 Umeclidinium Brm/Vilanterol Tr [Anoro Ellipta 62.5-25 Mcg INH] 1 each IH DAILY 30 Days #1 blst.w.dev 04/19/19 History of Present Illiness History of Present Illness: MAUDE FIGUEROA is a 63 year old male who presented to the emergency room with acute dyspnea. He admits that he developed dyspnea this morning which he has worsened throughout the day, eventually becoming severe, causing him to call EMS to bring him to the hospital. His dyspnea is worsened by exertion and is accompanied by an increased chronic nonproductive cough. His dyspnea has been associated with intermittent episodes of subjective fever and chills with diaphoresis. He denies other associated or accompanying signs and symptoms. He admits prior similar episodes with respiratory infections in the past. He denie s identification of any additional aggravating or ameliorating factors for his dyspnea. In the emergency room he was found to have an unremarkable evaluation with the exception of an initial elevated lactic acid which resolved with IV fluids and wheezing with acute hypoxic respiratory failure requiring supplemental oxygen. Patient was subsequently admitted to the hospital for further evaluation and treatment. Hospital Course Hospital Course: (1) Acute respiratory failure with hypoxia Due to COPD exacerbation. CXR no acute findings. Troponins negative. EKG no acute changes. Continue duo nebs, supplemental oxygen, incentive spirometry, IV steroids, empiric IV antibiotics, pulmonary toileting, LABA, LABA, ICS. (2) COPD exacerbation Plan as per #1. (3) Tobacco use disorder, severe, dependence Extensively counseled on quitting. NicoDerm patch provided. (4) Fever Patient had reported fever chills on admission. Also noted to have a fever of 102.9 on 04/15/2019. WBC WNL. Influenza A/B negative. CXR WNL. Cultures negative so far. Physical Exam Vital Signs: Temp Pulse Resp BP Pulse Ox 97.9 F 93 16 135/73 H 96 04/19/19 10:00 04/19/19 10:00 04/19/19 10:00 04/19/19 10:04/19/19 10:00 General appearance: PRESENT: no acute distress, well-developed, well-nourished Head exam: PRESENT: atraumatic, normocephalic Respiratory exam: PRESENT: clear to auscultation godfrey. ABSENT: rales, rhonchi, wheezes Cardiovascular exam: PRESENT: RRR. ABSENT: diastolic murmur, rubs, systolic murmur GI/Abdominal exam: PRESENT: normal bowel sounds, soft. ABSENT: distended, guarding, mass, organolmegaly, rebound, tenderness Neurological exam: PRESENT: alert, awake, oriented to person, oriented to place, oriented to time, oriented to situation, CN II-XII grossly intact. ABSENT: motor sensory deficit Results Laboratory Results: WBC 8.5 10^3/uL (4.0-10.5) 04/18/19 04:47 RBC 4.15 10^6/uL (4.35-5.55) L 04/18/19 04:47 Hgb 13.7 g/dL (13.5-17.0) 04/18/19 04:47 Hct 39.8 % (37.9-51.0) 04/18/19 04:47 MCV 96 fl (80-97) 04/18/19 04:47 MCH 33.0 pg (27.0-33.4) 04/18/19 04:47 MCHC 34.4 g/dL (32.0-36.0) 04/18/19 04:47 RDW 13.6 % (11.5-14.0) 04/18/19 04:47 Plt Count 155 10^3/uL (150-450) 04/18/19 04:47 Lymph % (Auto) 10.2 % (13-45) L 04/17/19 06:18 [place] % (Auto) 9.7 % (3-13) 04/17/19 06:18 Eos % (Auto) 0.1 % (0-6) 04/17/19 06:18 Baso % (Auto) 0.1 % (0-2) 04/17/19 06:18 Absolute Neuts (auto) 9.8 10^3/uL (1.7-8.2) H 04/17/19 06:18 Absolute Lymphs (auto) 1.3 10^3/uL (0.5-4.7) 04/17/19 06:18 Absolute Monos (auto) 1.2 10^3/uL (0.1-1.4) 04/17/19 06:18 Absolute Eos (auto) 0.0 10^3/uL (0.0-0.6) 04/17/19 06:18 Absolute Basos (auto) 0.0 10^3/uL (0.0-0.2) 04/17/19 06:18 Seg Neutrophils % 79.9 % (42-78) H 04/17/19 06:18 PT 13.2 SEC (11.4-15.4) 04/15/19 14:30 INR 1.00 04/15/19 14:30 VBG pH 7.38 (7.30-7.42) 04/15/19 14:30 VBG pCO2 53.4 mmHg (35-63) 04/15/19 14:30 VBG HCO3 30.5 mmol/L (20-32) 04/15/19 14:30 VBG Base Excess 3.8 mmol/L 04/15/19 14:30 Sodium 138.1 mmol/L (137-145) 04/17/19 06:18 Potassium 4.7 mmol/L (3.6-5.0) 04/17/19 06:18 Chloride 102 mmol/L (98-107) 04/17/19 06:18 Carbon Dioxide 31 mmol/L (22-30) H 04/17/19 06:18 Anion Gap 5 (5-19) 04/17/19 06:18 BUN 13 mg/dL (7-20) 04/17/19 06:18 Creatinine 0.59 mg/dL (0.52-1.25) 04/17/19 06:18 Est GFR ( Amer) > 60 (>60) 04/17/19 06:18 Est GFR (MDRD) Non-Af > 60 (>60) 04/17/19 06:18 Glucose 90 mg/dL (75-110) 04/17/19 06:18 POC Glucose 106 mg/dL (70-110) 04/16/19 20:26 Lactic Acid 1.3 mmol/L (0.7-2.1) 04/17/19 06:18 Calcium 8.5 mg/dL (8.4-10.2) 04/17/19 06:18 Magnesium 2.1 mg/dL (1.6-2.3) 04/17/19 06:18 Total Bilirubin 0.4 mg/dL (0.2-1.3) 04/15/19 14:30 Direct Bilirubin 0.3 mg/dL (0.0-0.4) 04/15/19 14:30 Neonat Total Bilirubin Not Reportable 04/15/19 14:30 Neonat Direct Bilirubin Not Reportable 04/15/19 14:30 Neonat Indirect Bili Not Reportable 04/15/19 14:30 AST 21 U/L (17-59) 04/15/19 14:30 ALT 13 U/L (<50) 04/15/19 14:30 Alkaline Phosphatase 83 U/L (38-126) 04/15/19 14:30 Troponin I < 0.012 ng/mL 04/15/19 14:30 NT-Pro-B Natriuret Pep 142 pg/mL (<125) H 04/15/19 14:30 Total Protein 6.9 g/dL (6.3-8.2) 04/15/19 14:30 Albumin 3.8 g/dL (3.5-5.0) 04/15/19 14:30 Urine Color YELLOW 04/15/19 18:50 Urine Appearance CLEAR 04/15/19 18:50 Urine pH 6.0 (5.0-9.0) 04/15/19 18:50 Ur Specific [place] 1.011 04/15/19 18:50 Urine Protein 30 mg/dL (NEGATIVE) H 04/15/19 18:50 Urine Glucose (UA) NEGATIVE mg/dL (NEGATIVE) 04/15/19 18:50 Urine Ketones TRACE mg/dL (NEGATIVE) H 04/15/19 18:50 Urine Blood NEGATIVE (NEGATIVE) 04/15/19 18:50 Urine Nitrite (Reflex) NEGATIVE (NEGATIVE) 04/15/19 18:50 Urine Bilirubin NEGATIVE (NEGATIVE) 04/15/19 18:50 Urine Urobilinogen 4.0 mg/dL (<2.0) H 04/15/19 18:50 Leukocyte Esterase Rfl NEGATIVE (NEGATIVE) 04/15/19 18:50 Urine RBC (Auto) 4 /HPF 04/15/19 18:50 Urine WBC (Reflex) < 1 /HPF 04/15/19 18:50 Urine Mucus (Auto) RARE /LPF 04/15/19 18:50 Urine Ascorbic Acid NEGATIVE (NEGATIVE) 04/15/19 18:50 Influenza A (Rapid) NEGATIVE (NEGATIVE) 04/15/19 17:42 Influenza B (Rapid) NEGATIVE (NEGATIVE) 04/15/19 17:42 04/15/19 04/15/19 14:30 14:30 Troponin I < 0.012 NT-Pro-B Natriuret Pep 142 H Impressions: Chest X-Ray 04/15/19 14:29 IMPRESSION: NO ACUTE RADIOGRAPHIC FINDING IN THE CHEST. Stroke Is this a Stroke Patient?: No Acute Heart Failure - Is this a Heart Failure Patient?: No
== END 2019-04-19 14:01 | disposition home or self-care (01) | DRG 190 ==
LOC: ER 13:36 → EH 20:40 → 4W 23:50
PROVIDERS: ADMIT Emergency Medicine; ATTEND Emergency Medicine
DX: J44.1 Chronic obstructive pulmonary disease with (acute) exacerbation (principal); J96.01 Acute respiratory failure with hypoxia; E87.1 Hypo-osmolality and hyponatremia; F17.210 Nicotine dependence, cigarettes, uncomplicated; Z60.2 Problems related to living alone
CPT/HCPCS: 36415; 71045; 80048; 80053; 81001; 82803; 82962; 83605; 83735; 83880; 84484; 85025; 85027; 85610; 87040; 87070; 87205; 87804; 93005; 93010; 94640; 96365; 96375; 99285; J1644; J2920; J2930; J3475; J3490; J7030; J7512; J7620